=== PATIENT | male | born 1945 | race African-American/Black ===

== ENCOUNTER 2021-12-12 19:46 | Emergency (ER) | payer OTHER ==
[~2021-12-12] VITALS: Ht 165.1 cm; Wt 111.1 kg
[2021-12-12] MEDS ORDERED: COZAAR100 MG (19:58)
[2021-12-12] MEDS ORDERED: WELLBUTRIN XL300 MG (20:00)
[2021-12-12] MEDS ORDERED: TOPROL XL50 M1 (20:00)
[2021-12-12] MEDS ORDERED: CHILDREN'S ASPI81 MG (20:00)
[2021-12-12] MEDS ORDERED: LOSARTAN-HCTZ1 EAC2 (20:01)
[2021-12-12] MEDS ORDERED: DICLOFENAC SODI75 MG PO (20:13)
== END 2021-12-12 20:28 | disposition home or self-care (01) ==
LOC: ER 19:46
DX: M62.838 Other muscle spasm (principal)

== ENCOUNTER 2024-05-29 04:05 | Emergency (ER) | payer OTHER ==
[~2024-05-29] VITALS: Ht 167.6 cm; Wt 104.3 kg
[~2024-05-29 04:05] MED LIST: CHILDREN'S ASPI81 MG; COZAAR100 MG; DICLOFENAC SODI75 MG PO; ELIQUIS5 MG PO; LOSARTAN-HCTZ1 EAC2; TENORMIN100 M1 PO; TOPROL XL50 M1; WELLBUTRIN XL300 MG; ZOFRAN8 MG PO
[2024-05-29] MEDS ORDERED: CANDESARTAN-HC1 EACH PO (04:17)
[2024-05-29] MEDS ORDERED: KETOROLAC TROMETHAMINE 60 MG VIAL IM STA (04:32)
[2024-05-29] MEDS ORDERED: DEXAMETHASONE SODIUM PHOSPHATE 4 MG/ML VIAL IM STA (04:32)
[2024-05-29] MEDS ORDERED: ACETAMINOPHEN WITH CODEINE 1 UDTAB TABLET PO STA (04:33)
[2024-05-29] MEDS ORDERED: DEXAMETHASONE SODIUM PHOSPHATE 4 MG/ML VIAL ONE (04:39)
== END 2024-05-29 05:09 | disposition home or self-care (01) ==
LOC: ER 04:05
DX: M79.671 Pain in right foot (principal)
CPT/HCPCS: 96372; 99282; J1100; J1885

== ENCOUNTER → 2024-12-10 | Emergency (ER) | payer OTHER ==
[~2024-12-10] VITALS: Ht 157.5 cm; Wt 108.9 kg
[~2024-12-10] MED LIST changes: +CANDESARTAN-HC1 EACH PO; +DEXAMETHASONE SODIUM PHOSPHATE 4 MG/ML VIAL IM ONE; +ORPHENADRINE CITRATE 30 MG/ML AMPUL IM ONE
== END | disposition home or self-care (01) ==
LOC: ER 07:04
DX: M54.50 Low back pain, unspecified (principal); I11.9 Hypertensive heart disease without heart failure; Z85.46 Personal history of malignant neoplasm of prostate
CPT/HCPCS: 96372; 99282; J1100; J2360